=== PATIENT | male | born 1940 | race Caucasian/White ===

== ENCOUNTER → 2020-05-23 | Outpatient (CLI) | payer MEDICARE ==
[2020-05-23 10:05] LABS: INR 1.3 (<1.2); Prothrombin Time 13.2 sec (9.0-12.0)
== END | disposition home or self-care (01) ==
LOC: LABWHC1 09:30
PROVIDERS: ATTEND Dentist Oral and Maxillofacial Surgery
DX: Z51.81 Encounter for therapeutic drug level monitoring (principal); Z79.01 Long term (current) use of anticoagulants
CPT/HCPCS: 36415; 85610

== ENCOUNTER → 2020-10-31 | Outpatient (CLI) | payer MEDICARE ==
[2020-10-31 10:51] LABS: INR 1.3 (<1.2); Prothrombin Time 13.6 sec (9.0-12.0)
== END ==
LOC: LABWHC1 10:23
PROVIDERS: ATTEND Dentist Oral and Maxillofacial Surgery
DX: D68.9 Coagulation defect, unspecified (principal)
CPT/HCPCS: 36415; 85610

== ENCOUNTER → 2024-10-10 | Outpatient (CLI) | payer MEDICARE, BC ==
--- NOTE | 2024-10-10 09:14 | XR ---
EXAMINATION TYPE: XR KUB DATE OF EXAM: 10/10/2024 COMPARISON: NONE HISTORY: N20.0, N20.1 calculus kidney ureter TECHNIQUE: Single supine KUB image of the abdomen is obtained FINDINGS: Small bowel demonstrates no evidence for dilatation or air fluid levels. Gas and fecal material is seen in non-distended colon. No convincing evidence for pneumoperitoneum. Cholecystectomy clips in the right upper quadrant. Additional surgical clip within the right pelvis. Right renal 3 mm calculus suggested. Left renal 9 mm calculus suggested. Evaluation is limited due to overlying stool. Multiple pelvic phleboliths demonstrated. Vascular calcifications. The lung bases are clear. Elevation of the right hemidiaphragm. No acute osseous abnormality. Partial visualization of median sternotomy wires. Surgical clips overli e the heart. IMPRESSION: 1. Suggested bilateral renal calculi however evaluation is limited due to overlying stool. 2. Bilateral pelvic phleboliths however distal ureteral calculi are not entirely excluded. [facility], , 10/10/2024 9:12 AM
== END | disposition home or self-care (01) ==
LOC: RADXRMAIN 08:57
PROVIDERS: ATTEND Urology
DX: N20.2 Calculus of kidney with calculus of ureter (principal)
CPT/HCPCS: 74018

== ENCOUNTER → 2024-10-26 | Outpatient (CLI) | payer MEDICARE, BC ==
--- NOTE | 2024-10-26 09:31 | XR ---
EXAMINATION TYPE: XR KUB DATE OF EXAM: 10/26/2024 9:16 AM CLINICAL INDICATION: Male, 83 years old with history of N20.1 Calculus Ureter, pain TECHNIQUE: 2 supine views of the abdomen. COMPARISON: Abdominal x-ray October 10, 2024. FINDINGS: Several left renal calculi redemonstrated measuring up to 6 mm lower pole left kidney at L2 level. A few small right renal calculi redemonstrated. Likely 2 adjacent distal right ureter calculi up to 8 mm. Left-sided pelvic phleboliths redemonstrated. Vascular calcification redemonstrated overlying the pelvis. Cholecystectomy clips are redemonstrated. Overall nonobstructive bowel gas pattern. Osseous structures are intact. IMPRESSION: As above. [facility], , 10/26/2024 9:29 AM
== END | disposition home or self-care (01) ==
LOC: RADXRMAIN 08:59
PROVIDERS: ATTEND Urology
DX: N20.1 Calculus of ureter (principal)
CPT/HCPCS: 74018

== ENCOUNTER → 2024-11-20 | Outpatient (CLI) | payer MEDICARE, BC ==
--- NOTE | 2024-11-20 08:17 | XR ---
EXAMINATION TYPE: XR KUB DATE OF EXAM: 11/20/2024 7:30 AM COMPARISON: 10/26/2024 CLINICAL INDICATION: Male, 84 years old with history of N20.1 CALCULUS OF URETER; [facility] TECHNIQUE: One radiographic view of the abdomen was obtained. FINDINGS: The bowel gas pattern is nonspecific without dilated loops of small or large bowel. . Fecal material and gas are demonstrated throughout the colon and rectum. There is no evidence for organome anushka or pneumoperitoneum. No acute osseous process. Left renal calculi measuring up to 6 mm. Likely was present. Right upper quadrant cholecystectomy clips. Calcific densities possibly within the uret er on the right measuring up to 10 mm. IMPRESSION: 1. Nonspecific bowel gas pattern without radiographic evidence for acute process. 2. Left renal calculus in the right proximal ureter calculus. Consider CT imaging. [facility], , 11/20/2024 8:15 AM
== END | disposition home or self-care (01) ==
LOC: RADXRMAIN 07:07
PROVIDERS: ATTEND Urology
DX: N20.2 Calculus of kidney with calculus of ureter (principal)
CPT/HCPCS: 74018